=== PATIENT | female | born 1950 | race Caucasian/White ===

== ENCOUNTER 2023-01-29 14:24 | Emergency (ER) | payer MEDICARE, BC ==
[~2023-01-29] VITALS: Ht 152.4 cm; Wt 68.2 kg
[2023-01-29] MEDS ORDERED: TENORMIN100 MG PO (14:39)
[2023-01-29] MEDS ORDERED: REPATHA SU140 MG/1 M SQ (14:39)
[2023-01-29] MEDS ORDERED: CLOPIDOGREL PO (14:40)
[2023-01-29] MEDS ORDERED: ESCITALOPRAM10 MG PO (14:40)
[2023-01-29] MEDS ORDERED: NEURONTIN100 M1 PO (14:40)
[2023-01-29] MEDS ORDERED: ASPIRIN 81M81 MG/TA2 PO (14:40)
[2023-01-29] MEDS ORDERED: NEXIUM 40MG40 MG (14:41)
[2023-01-29] MEDS ORDERED: PEPCID 20MG TAB20 MG PO (14:41)
[2023-01-29] MEDS ORDERED: IMODIUM A-D2 M3 PO (14:42)
[2023-01-29] MEDS ORDERED: ZYRTEC ALLERGY10 MG PO (14:42)
[2023-01-29] MEDS ORDERED: BIOTIN5000 MC2 PO (14:43)
[2023-01-29] MEDS ORDERED: METAMUCIL3.4 GM/Dos PO (14:43)
[2023-01-29] MEDS ORDERED: NORCO 325 MG-51 TA1 PO (16:28)
[2023-01-29] MEDS ORDERED: CYCLOBENZAPRINE10 M1 PO (17:06)
[2023-01-29 17:33] VITALS: BP 134/80
== END 2023-01-29 17:15 | disposition home or self-care (01) ==
LOC: ED 14:24
DX: S20.212A Contusion of left front wall of thorax, initial encounter (principal); W10.9XXA Fall (on) (from) unspecified stairs and steps, initial encounter; Y92.009 Unspecified place in unspecified non-institutional (private) residence as the place of occurrence of the external cause

== ENCOUNTER → 2024-04-09 | Outpatient (CLI) | payer MEDICARE, BC ==
[~2024-04-09] MED LIST: ASPIRIN 81M81 MG/TA2 PO; BIOTIN5000 MC2 PO; CLOPIDOGREL PO; CYCLOBENZAPRINE10 M1 PO; ESCITALOPRAM10 MG PO; IMODIUM A-D2 M3 PO; METAMUCIL3.4 GM/Dos PO; NEURONTIN100 M1 PO; NEXIUM 40MG40 MG; NORCO 325 MG-51 TA1 PO; PEPCID 20MG TAB20 MG PO; REPATHA SU140 MG/1 M SQ; TENORMIN100 MG PO; ZYRTEC ALLERGY10 MG PO
== END ==
LOC: RAD 13:47
DX: M17.12 Unilateral primary osteoarthritis, left knee (principal); M25.572 Pain in left ankle and joints of left foot; M25.552 Pain in left hip